=== PATIENT | female | born 1975 | race Caucasian/White ===

== ENCOUNTER 2022-10-28 16:40 | Emergency (ER) | payer SELFPAY ==
[2022-10-28 17:17] LABS: #Basophils 0.1 thou/uL (0.0-0.2); #Eosinphils 0.5 thou/uL (0.0-0.7); #Neutrophils 4.7 thou/uL (1.40-6.50); %Basophils 0.5 % (0.0-1.0); %Eosinophils 5.1 % (0.0-10.0); %Lymphocytes 33.2 % (21.0-51.0); %Monocytes 10.9 % (0.0-10.0); %Neutrophils 50.1 % (42.0-75.0); Hematocrit 37.4 % (36.0-47.0); Hemoglobin 12.7 g/dL (12.0-16.0); Mean Corpuscular Hemoglobin 33.7 pg (27.0-31.0); Mean Corpuscular Volume 99.2 fl (78.0-98.0); Mean Platelet Volume 9.3 fL (7.4-10.4); Platelet Count 269 10x3/uL (130-400); RBC Distribution Width 12.7 % (11.5-14.5); Red Blood Cell (RBC) Count 3.77 mill/uL (4.20-5.40); White Blood Cell (WBC) Count 9.3 10x3/uL (4.8-10.8)
[2022-10-28 17:44] LABS: Acetaminophen Less than 10 mcg/mL (10.0-30.0); Alcohol Less than 10.0 mg/dL (Less than 10); Magnesium 1.9 mg/dL (1.6-2.6); Salicylate Less than 8.0 mg/dL (15.0-30.0)
[2022-10-28 17:48] LABS: ALT (SGPT) 10 U/L (8-55); AST (SGOT) 12 U/L (5-34); Albumin 3.8 g/dL (3.5-5.0); Alkaline Phosphatase 80 U/L (40-110); Anion Gap 9 mmol/L (10-20); BUN (Urea Nitrogen) 14 mg/dL (7.0-18.7); Bilirubin, Total 0.3 mg/dL (0.2-1.2); CK (CPK) 68 U/L (29-168); Calc. Creatinine Clearance 0 mL/min (70-130); Calcium 9.3 mg/dL (7.8-10.44); Carbon Dioxide 29 mmol/L (22-29); Chloride 104 mmol/L (98-107); Estimated GFR 91; Globulin 2.4 g/dL (2.4-3.5); Glucose 90 mg/dL (70-105); Potassium 3.8 mmol/L (3.5-5.1); Protein, Total 6.2 g/dL (6.0-8.3); Sodium 138 mmol/L (136-145)
[2022-10-28 20:14] LABS: Anion Gap 10 mmol/L (10-20); BUN (Urea Nitrogen) 12 mg/dL (7.0-18.7); Calc. Creatinine Clearance 0 mL/min (70-130); Calcium 8.3 mg/dL (7.8-10.44); Carbon Dioxide 25 mmol/L (22-29); Chloride 110 mmol/L (98-107); Estimated GFR 94; Glucose 104 mg/dL (70-105); Magnesium 1.9 mg/dL (1.6-2.6); Potassium 3.8 mmol/L (3.5-5.1); Sodium 141 mmol/L (136-145)
[2022-10-29] MEDS ORDERED: Acetaminophen 500 MG TAB ONE (10:13)
[2022-10-29 10:23] LABS: Bacteria/HPF None Seen HPF (None Seen); Bilirubin Negative (Negative); Blood, Urine Negative (Negative); CAUTI Indications for Culture Alt mental st,lethar; Clarity Clear (Clear); Glucose, Urine (Dipstick) Normal (Negative); Ketone, Urine Negative (Negative); Leukocyte Negative Leu/uL (Negative); Nitrite Negative (Negative); Protein, Urine (Dipstick) Negative (Neg-Trace); RBC/HPF 0-3 HPF (0-3); Specific Gravity, Urine 1.014 (1.002-1.036); Urobilinogen Normal mg/dL (Less than 2); WBC/HPF 0-3 HPF (0-3); pH, Urine 6.5 (5.0-9.0)
[2022-10-29 10:25] LABS: Pregnancy Test - Urine (BHCG) Negative (Negative); Pregu Control Background? CLEAR/WHITE (CLR/WHITE); Pregu Control Bar Appear? YES (CONTROL BAR); Specific Gravity 1.014 (1.002-1.036)
[2022-10-29 10:26] LABS: Urine Culture Reflex No No
[2022-10-29 10:28] LABS: Amphetamine Detected (NotDetected); Barbiturates Screen Not Detected (NotDetected); Benzodiazepine Screen Detected (NotDetected); Cocaine Metabolite Screen Not Detected (NotDetected); Methadone Not Detected (NotDetected); Methamphetamine Detected (NotDetected); Opiate Screen Not Detected (NotDetected); Oxycodone Screen Not Detected (NotDetected); Phencyclidine (PCP) Not Detected (NotDetected); THC/Cannabinoid Screen Detected (NotDetected); Tricyclic Screen Detected (NotDetected)
[2022-10-29] MEDS ORDERED: hydrOXYzine 25 MG TAB ONE (15:41)
[2022-10-29] MEDS ORDERED: Nicotine 14 MG PATCH ONE (15:42)
[2022-10-29] MEDS ORDERED: Ibuprofen 600 MG TAB PO PRN (17:24)
[2022-10-29] MEDS ORDERED: Acetaminophen 325 MG TAB PO PRN (17:30)
[2022-10-29] MEDS ORDERED: hydrOXYzine Pamoate 25 mg Capsule PO PRN (17:32)
[2022-10-29] MEDS ORDERED: hydrOXYzine Pamoate 25 mg Capsule PO SCH (21:00)
[2022-10-30] MEDS ORDERED: FLUoxetine HCl 10 MG CAP PO SCH (09:00)
[2022-10-30] MEDS ORDERED: Diazepam 5 MG TAB ONE (12:19)
[2022-10-30] MEDS ORDERED: Diazepam 10 MG/2 ML SYRINGE ONE (12:19)
[2022-10-30] MEDS ORDERED: Gabapentin 300 MG CAP PO SCH ×2 (15:45→23:00)
[2022-10-30] MEDS ORDERED: Nicotine 14 MG PATCH ONE (23:58)
[2022-10-30] MEDS ORDERED: hydrOXYzine 25 MG TAB ONE (23:58)
[2022-10-31] MEDS ORDERED: hydrOXYzine Pamoate 25 mg Capsule ONE ×2 (07:57→17:41)
[2022-10-31] MEDS ORDERED: Gabapentin 300 MG CAP PO SCH ×2 (09:15→15:00)
[2022-10-31] MEDS ORDERED: Diazepam 10 MG/2 ML SYRINGE ONE (09:26)
[2022-10-31] MEDS ORDERED: Diazepam 5 MG TAB ONE (09:26)
[2022-10-31] MEDS ORDERED: Acetaminophen 500 MG TAB ONE (09:26)
[2022-10-31] MEDS ORDERED: Nicotine 14 MG PATCH ONE (10:30)
[2022-10-31] MEDS ORDERED: QUEtiapine 25 MG TAB PO SCH (19:30)
[2022-10-31] MEDS ORDERED: traZODone HCl 50 MG TAB ONE (19:34)
[2022-11-01] MEDS ORDERED: hydrOXYzine Pamoate 25 mg Capsule ONE (09:19)
== END 2022-11-01 12:31 | disposition home or self-care (01) ==
LOC: ERS 16:40
DX: R45.851 Suicidal ideations (principal); F19.10 Other psychoactive substance abuse, uncomplicated; F17.210 Nicotine dependence, cigarettes, uncomplicated
CPT/HCPCS: 36415; 80053; 80306; 80307; 81001; 81025; 82550; 83735; 84443; 85025; 93005; 94760; 96360; 96361; 99292; J3360; Q0177